=== PATIENT | female | born 1940 | race Caucasian/White ===

== ENCOUNTER 2019-02-23 14:45 | Day surgery (SDC) | payer MEDICARE, OTHER ==
[~2019-02-23 14:45] MED LIST: CEFAZOLIN 1 GM INJ; LIDOCAINE 2% (SDV) 5 ML INJ; PROPOFOL 200 MG INJ
[2019-02-23] MEDS ORDERED: CEFAZOLIN 2 GM/50 ML (PMX) 50 ML IVPB (16:00)
[2019-02-23] MEDS ORDERED: FENTAnyl 50 MCG/ML VIAL (16:40)
[2019-02-23] MEDS ORDERED: MIDAZOLAM 1 MG/ML 2 ML INJ (16:40)
[2019-02-23] MEDS ORDERED: METOCLOPRAMIDE 10 MG INJ IV (17:00)
[2019-02-23] MEDS ORDERED: LABETALOL HCL 20MG INJ IV (17:00)
[2019-02-23] MEDS ORDERED: FENTAnyl 50 MCG/ML VIAL IV ×2 (17:00)
[2019-02-23] MEDS ORDERED: HYDROmorphONE 1 MG/5 ML IV SYRINGE IV ×2 (17:00)
[2019-02-23] MEDS ORDERED: hydrALAzine 20 MG INJ IV (17:00)
[2019-02-23] MEDS ORDERED: ONDANSETRON 4 MG INJ IV (17:00)
[2019-02-23] MEDS: BUPIVACAINE 0.5% (SDV) 30 ML INJ (17:13)
[2019-02-23] MEDS: POLYMYXIN/BACITRACIN 1L IRRIG (17:13)
[2019-02-23] MEDS: LIDOCAINE 1% (MPF) 30 ML INJ (17:27)
== END 2019-02-23 19:48 | disposition home or self-care (01) ==
LOC: SDS 14:45
DX: L97.519 Non-pressure chronic ulcer of other part of right foot with unspecified severity (principal); M86.671 Other chronic osteomyelitis, right ankle and foot; M06.9 Rheumatoid arthritis, unspecified; Z86.73 Personal history of transient ischemic attack (TIA), and cerebral infarction without residual deficits
CPT/HCPCS: 28104; 87070; 87102; 87116; 88304